=== PATIENT | male | born 1960 | race Hispanic/Latino ===

== ENCOUNTER 2017-07-20 09:15 | Emergency (ER) | payer MEDICARE, OTHER ==
[2017-07-20 09:22] VITALS: TEMP 99; O2SAT 97; BMI 28.5
[2017-07-20] MEDS ORDERED: Iohexol 240 (50 ml) PO ONE (09:37)
--- NOTE | 2017-07-20 09:47 | ED PDOC ---
HPI: Abdomen Time Seen by Provider: 07/20/17 09:28 Chief Complaint (Nursing): Abdominal Pain Chief Complaint (Provider): abdominal and chest pain, blood in stool History Per: Patient History/Exam Limitations: no limitations Onset/Duration Of Symptoms: Days (1), Gradual Location Of Pain/Discomfort: LLQ, Other (chest) Quality Of Discomfort: Sharp Associated Symptoms: denies: Nausea, Vomiting, Diarrhea, Loss Of Appetite, Constipation, Urinary Symptoms Exacerbating Factors: None Alleviating Factors: None Last Bowel Movement: Today Additional Complaint(s): 57yo male c/o lower abdominal pain and noticing blood in stool this morning, pain sharp radiated to chest. Denies syncope, fever, SOB or cough. Past Medical History Reviewed: Historical Data, Nursing Documentation, Vital Signs Vital Signs: Last Vital Signs Temp 99 F 07/20/17 09:21 Pulse 86 07/20/17 14:45 Resp 18 07/20/17 14:45 BP 130/68 07/20/17 14:45 Pulse Ox 97 07/20/17 14:45 - Medical History PMH: Back Problems, HTN - Surgical History Surgical History: No Surg Hx - Family History Family History: States: Unknown Family Hx - Social History Current smoker - smoking cessation education provided: Yes - Home Medications Home Medications: Ambulatory Orders Medication Instructions Recorded Ciprofloxacin [Cipro] 500 mg PO BID #14 tab 07/20/17 metroNIDAZOLE [Flagyl] 500 mg PO TID #21 tab 07/20/17 - Allergies Allergies/Adverse Reactions: Allergies Allergy/AdvReac Type Severity Reaction Status Date / Time No Known Allergies Allergy Verified 07/20/17 09:39 Review of Systems ROS Statement: Except As Marked, All Systems Reviewed And Found Negative Constitutional: Negative for: Fever, Chills Cardiovascular: Positive for: Chest Pain. Negative for: Palpitations, Orthopnea Respiratory: Negative for: Cough, Shortness of Breath Gastrointestinal: Positive for: Abdominal Pain, Hematochezia, Rectal Pain. Negative for: Nausea, Vomiting, Hematemesis Genitourinary Male: Negative for: Dysuria Musculoskeletal: Negative for: Neck Pain Skin: Negative for: Rash, Lesions, Jaundice Neurological: Negative for: Weakness, Numbness, Dizziness Physical Exam - Reviewed Nursing Documentation Reviewed: Yes Vital Signs Reviewed: Yes - Physical Exam Appears: Positive for: Well, Non-toxic, No Acute Distress Head Exam: Positive for: ATRAUMATIC, NORMAL INSPECTION, NORMOCEPHALIC Skin: Positive for: Normal Color, Warm, DRY Eye Exam: Positive for: EOMI, Normal appearance, PERRL ENT: Positive for: Normal ENT Inspection Neck: Positive for: Normal, Painless ROM Cardiovascular/Chest: Positive for: Regular Rate, Rhythm Respiratory: Positive for: CNT, Normal Breath Sounds Gastrointestinal/Abdominal: Positive for: Bowel Sounds, Soft. Negative for: Tenderness, Guarding Back: Positive for: Normal Inspection Rectal: Positive for: Other (no stool in vault, nontender no blood present). Negative for: Black Stool, Blood Streaked Stool, Tenderness Extremity: Positive for: Normal ROM Neurologic/Psych: Positive for: Alert, Oriented - Laboratory Results Result Diagrams: 07/20/17 15:07 07/20/17 09:57 - ECG O2 Sat by Pulse Oximetry: 97 Medical Decision Making Medical Decision Making: patient states chest pain ongoing for months will check CT abd pelv r/o diverticulitis/colitis/mass other labs reviewed, Hgb normal CT abd pelv performed, results reviewed, possible colitis as per Dr Gentile repeat trop and Hgb performed- trop neg and Hgb remains the same No signs active bleeding or acute cardiac ischemia DC from ED, followup GI and PMD for further cardiac testing. ASA 81mg recommended for now for cardioprotection as hx HTN and smoking, no active bleeding now Explained needs followup w GI and PMD within next 3-5 days. Rx cipro and flagyl. Disposition - Clinical Impression Clinical Impression: Rectal bleeding, Chest pain, Colitis - Patient ED Disposition Is Patient to be Admitted: No Counseled Patient/Family Regarding: Studies Performed, Diagnosis, Need For Followup - Disposition Referrals: Alexandru GREENE,MD Cindy [Medical Doctor] - Disposition: Routine/Home Disposition Time: 14:30 Condition: STABLE Additional Instructions: Take medications as directed. See your doctor for further testing. This is very important. Recommend smoking cessation. Return to ER for any worse or new symptoms Prescriptions: Ciprofloxacin [Cipro] 500 mg PO BID #14 tab metroNIDAZOLE [Flagyl] 500 mg PO TID #21 tab Instructions: Chest Pain (ED), Rectal Bleeding (ED), Colitis (ED) Forms: [employer] ([place])
[2017-07-20 10:03] LABS: BASO # 0.1 K/uL (0.0-0.2); BASO % 0.8 % (0.0-2.0); EOS # 0.2 K/uL (0.0-0.7); EOS % 1.8 % (0.0-4.0); HEMOGLOBIN 15.1 g/dL (12.0-18.0); LYMPH % 16.5 % (20.0-40.0); MEAN CELL VOLUME 95.4 fl (80.0-94.0); MEAN CORPUSCULAR HEMOGLOBIN 33.1 pg (27.0-31.0); MEAN CORPUSCULAR HGB CONC 34.7 g/dL (33.0-37.0); MEAN PLATELET VOLUME 7.7 fl (7.2-11.7); MONO # 0.6 K/uL (0.0-0.8); MONO % 5.3 % (0.0-10.0); NEUT % 75.6 % (50.0-75.0); NRBC % 0.1 % (0.0-0.0); RBC 4.55 Mil/uL (4.40-5.90); RED CELL DISTRIBUTION WIDTH 12.4 % (11.5-14.5); WHITE BLOOD COUNT 11.9 K/uL (4.8-10.8)
[2017-07-20 10:14] LABS: ALB/GLOB RATIO 1.4 (1.0-2.1); ALBUMIN 4.5 g/dL (3.5-5.0); ALT/SGPT 56 U/L (21-72); AST/SGOT 47 U/L (17-59); BLOOD UREA NITROGEN 17 mg/dl (9-20); CALCIUM 9.1 mg/dL (8.4-10.2); GFR AFRICAN-AMERICAN > 60; GFR NON-AFRICAN AMERICAN 57
[2017-07-20] MEDS ORDERED: Iohexol 240 (50 ml) ONE (10:22)
--- NOTE | 2017-07-20 10:35 | RAD ---
HISTORY: chest pain/ r/o infiltrate COMPARISON: 2009 TECHNIQUE: Chest PA and lateral FINDINGS: LUNGS: No active pulmonary disease. Hilar regions are unchanged. Mild interstitial changes are appreciated. Trachea is midline. PLEURA: No significant pleural effusion identified. No pneumothorax apparent. CARDIOVASCULAR: Normal. OSSEOUS STRUCTURES: No significant abnormalities. Mild scoliosis is seen. VISUALIZED UPPER ABDOMEN: Normal. OTHER FINDINGS: None. IMPRESSION: No CHF or focal infiltrate.
[2017-07-20 10:41] LABS: PARTIAL THROMBOPLASTIN TIME 30.2 Seconds (25.6-37.1); PROTHROMBIN TIME 11.5 Seconds (9.8-13.1)
[2017-07-20 11:06] LABS: SQUAMOUS EPITHIAL < 1 /hpf (0-5); URINE BACTERIA RARE (<OCC); URINE BILIRUBIN NEGATIVE (NEGATIVE); URINE BLOOD NEGATIVE (NEGATIVE); URINE CLARITY SLIGHTY-CLOUDY (Clear); URINE COLOR AMBER (YELLOW); URINE GLUCOSE (UA) NEG (Normal); URINE LEUKOCYTE ESTERASE NEG Leu/uL (Negative); URINE NITRATE NEGATIVE (NEGATIVE); URINE PROTEIN 30 mg/dL (NEGATIVE); URINE UROBILINOGEN 0.2-1.0 mg/dL (0.2-1.0)
--- NOTE | 2017-07-20 12:16 | CARD ---
APPROVED REPORT EKG Measurement Heart [id number] <Conclusion> Sinus tachycardia Otherwise normal ECG
[2017-07-20 12:31] VITALS: RESP 18
[2017-07-20] MEDS ORDERED: Iohexol 300 100 ML IJ ONE (12:47)
[2017-07-20] MEDS ORDERED: Sodium Chloride 0.9% 50 ML IV ONE (12:48)
--- NOTE | 2017-07-20 13:39 | CT ---
PROCEDURE: CT Abdomen and Pelvis with contrast HISTORY: abdominal pain COMPARISON: None. TECHNIQUE: Contrast dose: 100 milliliters omni 300 Radiation dose: Total exam DLP = 1162 MGy-cm. This CT exam was performed using one or more of the following dose reduction techniques: Automated exposure control, adjustment of the mA and/or kV according to patient size, and/or use of iterative reconstruction technique. FINDINGS: LOWER THORAX: No infiltrates are seen at the lung bases. Mild interstitial changes are seen. Distal esophagus is unremarkable. Small subcarinal lymph node is identified, nonspecific. No pericardial effusion is seen. LIVER: Liver is diffusely fatty infiltrated, without evidence of focal mass or intrahepatic ductal dilatation. GALLBLADDER AND BILE DUCTS: Unremarkable. PANCREAS: Unremarkable. No gross lesion or ductal dilatation. SPLEEN: Unremarkable. ADRENALS: Unremarkable. No mass. KIDNEYS AND URETERS: Unremarkable. No hydronephrosis. No solid mass. VASCULATURE: Aorta is normal in size. Vascular structures are grossly patent. Mild atherosclerotic change of the aortoiliac bifurcation is noted. BOWEL: No small bowel dilatation or small bowel obstruction is noted. There appears to be mild colonic wall thickening involving the cecum and proximal right colon. Terminal ileum is unremarkable. Appendix is normal in outline. Remainder of the colon shows no evidence of wall thickening or pericolonic inflammatory change. APPENDIX: Normal appendix. PERITONEUM: Unremarkable. No free fluid. No free air. LYMPH NODES: No appreciable retroperitoneal adenopathy or mesenteric adenopathy is appreciated. BLADDER: Unremarkable. REPRODUCTIVE: Unremarkable. BONES: Degenerative changes are seen in the spine. No lytic is noted. OTHER FINDINGS: No free intraperitoneal air is appreciated. Visualized stomach and duodenum are unremarkable. IMPRESSION: Nonspecific colonic wall thickening involving the cecum and proximal right colon suggesting infectious or inflammatory colitis. An element of inflammatory bowel disease is not excluded. Terminal ileum and appendix are unremarkable. No small bowel obstruction seen. No ascites or free air.
[2017-07-20 14:37] LABS: VENOUS BLOOD GAS BASE EXCESS 4.4 mmol/L (0.0-2.0); VENOUS BLOOD GAS PCO2 43 mmHg (40-60); VENOUS BLOOD GAS PO2 42 mm/Hg (30-55); VENOUS BLOOD PH 7.44 (7.32-7.43)
[2017-07-20 14:46] VITALS: BP 130/68; PULSE 86
[2017-07-20 15:14] LABS: BASO # 0.1 K/uL (0.0-0.2); EOS # 0.3 K/uL (0.0-0.7); EOS % 3.4 % (0.0-4.0); HEMOGLOBIN 14.1 g/dL (12.0-18.0); LYMPH # 1.8 K/uL (1.0-4.3); MEAN CELL VOLUME 97.2 fl (80.0-94.0); MEAN CORPUSCULAR HEMOGLOBIN 32.7 pg (27.0-31.0); MEAN CORPUSCULAR HGB CONC 33.6 g/dL (33.0-37.0); MEAN PLATELET VOLUME 7.8 fl (7.2-11.7); MONO # 0.7 K/uL (0.0-0.8); MONO % 6.8 % (0.0-10.0); NEUT # 7.2 K/uL (1.8-7.0); NEUT % 70.8 % (50.0-75.0); RBC 4.31 Mil/uL (4.40-5.90); RED CELL DISTRIBUTION WIDTH 12.4 % (11.5-14.5); WHITE BLOOD COUNT 10.2 K/uL (4.8-10.8)
== END 2017-07-20 15:59 | disposition home or self-care (01) ==
LOC: H.ER 09:15
DX: R07.89 Other chest pain (principal); K51.911 Ulcerative colitis, unspecified with rectal bleeding; I10 Essential (primary) hypertension
CPT/HCPCS: 71020; 74177; 80053; 80320; 81003; 82803; 84484; 85025; 85610; 85730; 93005; 99284; Q9966; Q9967